=== PATIENT | female | born 1960 | race Caucasian/White ===

== ENCOUNTER 2019-12-14 15:13 | Emergency (ER) | payer MEDICAID, SELFPAY ==
[2019-12-14 15:14] VITALS: BP 145/95; PULSE 84; RESP 16; TEMP 36.7; O2SAT 99; BMI 23.8
--- NOTE | 2019-12-14 15:40 | EKG12_ITS ---
Test Reason : HEART RACING Blood Pressure : / mmHG Vent. Rate : 075 BPM Atrial Rate : 075 BPM P-R Int : 146 ms QRS Dur : 084 ms QT Int : 398 ms P-R-T Axes : 072 086 064 degrees QTc Int : 444 ms Normal sinus rhythm Normal ECG Confirmed by NINI LOPES, AZAEL ([id number]), rewrite editor ADAM OLVERA ([id number]) on 12/17/2019 9:31:33 AM Referred By: KHAN Confirmed By:AZAEL TERRAZAS MD
--- NOTE | 2019-12-14 15:41 | ED.DCSUM_ITS ---
History of Present Illness Chief Complaint: General Illness Informant: Patient Onset: Month(s) Context: Gradual Onset Timing: Intermittent Narrative: Patient presents with multiple complaints. Primary concern in the emergency room is episodes of heart racing and skipping beats along with chest pressure and nausea. She states she has intermittent dizziness and her fingertips will be numb. She states the palpitations will occur multiple times a day and seem to becoming more frequent. The numbness that she notes in her extremities seems to be intermittent and is come on more recently. She does report a history of COPD and states she is supposed to wear oxygen at night. Because she no longer has a PCP her medical supply [employer] has not been able to renew her supplies and she has not been wearing her oxygen for quite some time. - Past Medical History (1) COPD (chronic obstructive pulmonary disease) Status: Chronic (2) Chronic fatigue Status: Chronic (3) Fibromyalgia Status: Chronic (4) Arthritis Status: Chronic Past Medical History - Allergies and Home Meds Allergies/Adverse Reactions: Allergies No Known Allergies Allergy (Verified 12/14/19 15:20) Primary Care Physician: NOT,DEFINED [NON-STAFF] - Prior records reviewed: Yes Lives: Alone Smoking Status: Current every day smoker Review of Systems General: Denies: Chills, Fever Eyes: Denies: Visual changes - bilaterally ENT: Denies: Bilateral ear pain Cardiovascular: Reports: Chest pain - Chest burning, Palpitations, Heart racing Respiratory: Reports: Dyspnea - Intermittent. Denies: Cough Gastrointestinal: Reports: Nausea. Denies: Abdominal pain, Vomiting Genitourinary: Denies: Dysuria Musculoskeletal: Reports: - - Complains of toes turning bright red and purple Skin: Denies: Wounds Neurological: Denies: Headache Hematologic: Denies: Easy bruising, Easy bleeding Allergy: Denies: Uticaria Physical Exam Vital Signs/Narrative: Vital Signs Temp Pulse Resp BP Pulse Ox 12/14/19 15:14 98.1 F 84 16 145/95 H 99 Inital Vital Signs reviewed: Yes General: Well nourished, Well developed Head: Normocephalic ENT: Moist mucous membranes Neck: Supple, Nontender Cardiovascular: Regular rate, Regular rhythm Respiratory: No distress, CTA bilaterally Abdomen: Soft, Nontender, Normal bowel sounds Back: Nontender Extremities: Nontender, - - Normal skin coloration noted to the lower extremities at this time. Strong palpable pulses. Skin: Normal color Neurological: Alert, Oriented x3 Psychological: Normal affect Diagnostic/Tx/Re-eval Impressions Chest X-Ray 12/14/19 15:50 IMPRESSION: Stable hyperaeration. Likely left midlung granuloma. Electronically Signed: Issa Menchaca DO at 16:07 EDT Tel [phone], Service support , 12/14/19 15:50 Chest PA and Lateral [RAD] Stat Laboratory Results 12/14/19 12/14/19 12/14/19 15:45 15:45 15:45 WBC 6.7 RBC 4.52 Hgb 13.9 Hct 41.8 MCV 92.5 MCH 30.8 MCHC 33.3 RDW Std Deviation 43.0 RDW Coeff of Gaudencio 12.7 Plt Count 224 MPV 10.5 Immature Gran % (Auto) 0.300 Neut % (Auto) 77.2 H Lymph % (Auto) 13.1 L [place] % (Auto) 8.5 Eos % (Auto) 0.6 Baso % (Auto) 0.3 Absolute Neuts (auto) 5.2 Absolute Lymphs (auto) 0.88 Nucleated RBC % 0 D-Dimer Quant (PE/DVT) < 0.27 L Sodium 141 Potassium 3.4 L Chloride 107 Carbon Dioxide 30.0 Anion Gap 4 L BUN 19 H Creatinine 0.79 Estim Creat Clear Calc 59.29 Est GFR (MDRD) Af Amer 96 Est GFR (MDRD) Non-Af 80 BUN/Creatinine Ratio 24.0 H Glucose 98 Calcium 9.2 Troponin I < 0.015 TSH 1.19 - EKG Initial EKG Interpretation: Sinus Rhythm - Sinus at 75 with no acute ischemia. - Medical Decision Making Patient was observed on monitoring analyst. No cardiac arrhythmias noted. Potassium is slightly low and will be replaced. Patient is referred to Dr. Martell for close follow-up. s iron worker also talked with the patient. ED Disposition - Plan for ED Patient: Disposition: Home or Assisted Living Diagnosis: Palpitations, Hypokalemia Instructions: ED Palpitations, ED Potassium Deficiency Prescriptions: Potassium Chloride [K-Dur] 20 meq PO BID #6 tab Transmission Status: [facility] to [facility] Referrals: Sherry To MD [STAFF PHYSICIAN] - As soon as possible
--- NOTE | 2019-12-14 15:50 | RAD_ITS ---
STUDY: X-RAY CHEST REASON FOR EXAM: Female, 59 years old. and quot;I HAVE A WHOLE HOST OF SYMPTOMS and quot; -- -- RASH ON EYEBROWS, LUMP ON CHEST, HEART RACING AND POUNDING, DIZZINESS, FINGERTIPS FEEL NUMB, SWELLING IN KNEES, CALVES FEEL TIGHT, BREAKING OUT IN SWEATS. SYMPTOMS HAVE BEEN PRESENT FOR ABOUT 2 MONTHS TECHNIQUE: Frontal and lateral views COMPARISON: 02/11/2010 FINDINGS: The lungs are hyperaerated. Stable left midlung nodule laterally likely a granuloma. Normal size heart. Normal mediastinum and sonny. Normal visualized pulmonary arteries. Normal visualized aortic arch and descending thoracic aorta. Normal visualized thoracic spine. Normal visualized ribs, clavicles, and shoulders. There is no demonstrated abnormality of the visualized soft tissue structures of the upper abdomen. RAD/Chest PA and Lateral IMPRESSION: Stable hyperaeration. Likely left midlung granuloma. Electronically Signed: Issa Menchaca DO at 16:07 EDT Tel [phone], Service support ,
[2019-12-14] MEDS: 0.9% Normal Saline 1,000 ML 150 ML IV (15:54)
[2019-12-14 16:02] LABS: Absolute Lymphocyte Count 0.88 X10^3/uL (0.83-4.51); Absolute Neutrophil Count 5.2 X10^3/uL (2.0-7.7); Basophil# 0.02 X10^3/uL; Basophil% 0.3 % (0-1); Eosinophil# 0.04 X10^3/uL; Eosinophils% 0.6 % (0-5); Hematocrit 41.8 % (37-47); Hemoglobin 13.9 g/dL (12.0-15.0); Lymphocyte # 0.88 X10^3/ul (4.0); Lymphocyte % 13.1 % (19-41); Mean Corp Hgb Conc 33.3 g/dL (32-36); Mean Corpuscular Hgb 30.8 pg (27.0-32.0); Mean Corpuscular Volume 92.5 fL (81-99); Mean Platelet Vol. 10.5 fl (6.2-12.0); Monocyte# 0.57 X10^3/uL; Monocyte% 8.5 % (0-10); NRBC Flagged by Analyzer 0 % (0-5); Neutrophil % 77.2 % (47-70); Platelet Count 224 K/mm3 (150-450); RBC Distribution Width CV 12.7 % (11.6-14.6); Red Blood Count 4.52 M/mm3 (4.2-5.4); White Blood Count 6.7 K/mm3 (4.4-11.0)
[2019-12-14 16:17] LABS: D-Dimer Quantitative (DVT/PE) < 0.27 FEU/ug/m (0.27-0.49)
[2019-12-14 16:28] LABS: Anion Gap 4 (5-15); BUN 19 mg/dL (7-18); Calcium,Total 9.2 mg/dL (8.5-10.1); Chloride 107 mmol/L (98-107); Creatinine, Serum 0.79 mg/dL (0.55-1.02); EST Glomerular Filtration Rate 80 mL/min (>60); Est Glom Filt Rate - Afr Amer 96 mL/min (>60); Estimated Creatinine Clearance 59.29 ml/min; Glucose 98 mg/dL (74-106); Potassium 3.4 mmol/L (3.5-5.1); Sodium Level 141 mmol/L (136-145); Thyroid Stim Hormone (TSH) 1.19 uIU/mL (0.358-3.74)
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
[2019-12-14 17:13] VITALS: BP 147/89; PULSE 78; RESP 14; O2SAT 98
== END 2019-12-14 17:20 | disposition home or self-care (01) ==
PROVIDERS: Emergency Provider Emergency Medicine
DX: R00.2 Palpitations (principal); E87.6 Hypokalemia; F17.200 Nicotine dependence, unspecified, uncomplicated
CPT/HCPCS: 71046; 80048; 84443; 84484; 85025; 85379; 93005; 96360; 99285; J7030; A4216

== ENCOUNTER 2020-08-13 13:22 | Emergency (ER) | payer MEDICAID, SELFPAY ==
[2020-08-13 13:23] VITALS: BP 135/94; PULSE 86; RESP 18; TEMP 35.6; O2SAT 100; BMI 26.2
--- NOTE | 2020-08-13 13:50 | ED.VIS.GEN ---
History of Present Illness Chief Complaint: Headache Informant: Patient Narrative: 59-year-old female presents with intermittent sharp stabbing pains in her bilateral temples. They last seconds and occur on one side or the other. She states they are increasing in frequency. She states that she saw her doctor last week and an MRI of her brain was ordered. She states that it has not received prior authorization so she came here because it was worse over the weekend. She also states she supposed to have a lower extremity ultrasound because of bilateral leg swelling. She is also supposed to have blood work that was ordered in May that she has not yet got done because she is having hair loss source. They apparently wanted a CBC CMP and TSH. Patient denies any visual changes. Past Medical History - Allergies and Home Meds Allergies/Adverse Reactions: Allergies No Known Allergies Allergy (Verified 08/13/20 13:25) Primary Care Physician: Care Physician,No Primary [Primary Care Provider] - Surgical History: noncontributory Smoking Status: Current every day smoker Drugs: None Review of Systems General: Denies: Chills, Fever, Sweats Eyes: Denies: Visual changes - left, Visual changes - right, Visual changes - bilaterally, Diplopia ENT: Denies: Rhinorrhea, Sore throat Cardiovascular: Denies: Chest pain, Palpitations Respiratory: Denies: Dyspnea, Cough, Dyspnea on exertion Gastrointestinal: Denies: Abdominal pain, Nausea, Vomiting, Diarrhea, Melena, Hematochezia Genitourinary: Denies: Dysuria, Hematuria, Frequency Musculoskeletal: Reports: Swelling. Denies: Back pain, Extremity Pain Skin: Denies: Rash, Wounds Neurological: Reports: Headache. Denies: Weakness, Numbness Physical Exam Vital Signs/Narrative: Vital Signs Temp Pulse Resp BP Pulse Ox 08/13/20 13:23 96.1 F L 86 18 135/94 H 100 Inital Vital Signs reviewed: Yes General: Well nourished, Well developed, No Acute Distress Head: Normocephalic, Atraumatic Eyes: Perrl, EOMI ENT: Moist mucous membranes, No rhinorrhea Neck: Supple, Nontender Cardiovascular: Regular rate, Regular rhythm, No murmurs Respiratory: No distress, CTA bilaterally, Chest nontender Abdomen: Soft, Nontender, Nondistended, Normal bowel sounds Back: Nontender, Normal Inspection Extremities: Nontender, Edema - 1+ lower extremity pitting edema Skin: Normal color, No rash Neurological: Alert, Oriented x3, Cranial nerves II-XII grossly intact, Normal Strength, Normal Sensation Psychological: Normal affect, Normal Mood Diagnostic/Tx/Re-eval Laboratory Last Values WBC 6.6 K/mm3 (4.4-11.0) 08/13/20 13:50 RBC 4.46 M/mm3 (4.2-5.4) 08/13/20 13:50 Hgb 13.7 g/dL (12.0-15.0) 08/13/20 13:50 Hct 41.4 % (37-47) 08/13/20 13:50 MCV 92.8 fL (81-99) 08/13/20 13:50 MCH 30.7 pg (27.0-32.0) 08/13/20 13:50 MCHC 33.1 g/dL (32-36) 08/13/20 13:50 RDW Std Deviation 43.7 fl (35.1-43.9) 08/13/20 13:50 RDW Coeff of Gaudencio 12.7 % (11.6-14.6) 08/13/20 13:50 Plt Count 211 K/mm3 (150-450) 08/13/20 13:50 MPV 10.6 fl (6.2-12.0) 08/13/20 13:50 Immature Gran % (Auto) 0.200 % (0.0-0.9) 08/13/20 13:50 Neut % (Auto) 80.1 % (47-70) H 08/13/20 13:50 Lymph % (Auto) 11.4 % (19-41) L 08/13/20 13:50 [place] % (Auto) 7.2 % (0-10) 08/13/20 13:50 Eos % (Auto) 0.6 % (0-5) 08/13/20 13:50 Baso % (Auto) 0.5 % (0-1) 08/13/20 13:50 Absolute Neuts (auto) 5.3 X10^3/uL (2.0-7.7) 08/13/20 13:50 Absolute Lymphs (auto) 0.75 X10^3/uL (0.83-4.51) L 08/13/20 13:50 Nucleated RBC % 0 % (0-5) 08/13/20 13:50 Sodium 141 mmol/L (136-145) 08/13/20 13:50 Potassium 3.4 mmol/L (3.5-5.1) L 08/13/20 13:50 Chloride 105 mmol/L (98-107) 08/13/20 13:50 Carbon Dioxide 32.0 mmol/L (21.0-32.0) 08/13/20 13:50 Anion Gap 4 (5-15) L 08/13/20 13:50 BUN 16 mg/dL (7-18) 08/13/20 13:50 Creatinine 0.72 mg/dL (0.55-1.02) 08/13/20 13:50 Estim Creat Clear Calc 68.18 ml/min 08/13/20 13:50 Est GFR (MDRD) Af Amer 107 mL/min (>60) 08/13/20 13:50 Est GFR (MDRD) Non-Af 88 mL/min (>60) 08/13/20 13:50 BUN/Creatinine Ratio 22.2 RATIO (10-20) H 08/13/20 13:50 Glucose 107 mg/dL (74-106) H 08/13/20 13:50 Calcium 9.2 mg/dL (8.5-10.1) 08/13/20 13:50 Total Bilirubin 0.40 mg/dL (0.20-1.00) 08/13/20 13:50 AST 17 U/L (15-37) 08/13/20 13:50 ALT 25 U/L (13-56) 08/13/20 13:50 Alkaline Phosphatase 100 U/L (45-117) 08/13/20 13:50 Total Protein 7.3 g/dL (6.4-8.2) 08/13/20 13:50 Albumin 3.7 g/dL (3.2-5.0) 08/13/20 13:50 Globulin 3.6 g/dL (2.2-4.2) 08/13/20 13:50 Albumin/Globulin Ratio 1.0 RATIO (0.9-2.4) 08/13/20 13:50 TSH 0.79 uIU/mL (0.358-3.74) 08/13/20 13:50 - Medical Decision Making Basic blood work obtained and negative. I will write for the patient to have Lasix. She is to follow-up with her doctor. I would not recommend elevating the legs and perhaps needing compression stockings in the future. By for her intermittent sharp headaches in the temporal areas I cannot get that for her today but her doctor is will be arranging that. I do not think she needs an emergent CT scan symptoms been present for months. ED Disposition - Plan for ED Patient: Disposition: Home or Assisted Living Diagnosis: Cephalgia, Lymphedema Instructions: ED Lymphedema Prescriptions: Furosemide [Lasix] 40 mg PO DAILY #7 tablet Transmission Status: [facility] Additional Instructions: Please follow-up with your primary care physician. I would recommend you calling care source and seeing if you can be assigned a new provider here in [place] if you wish to change as sometimes it is very difficult to navigate which providers take care source.
[2020-08-13 13:59] LABS: Absolute Lymphocyte Count 0.75 X10^3/uL (0.83-4.51); Absolute Neutrophil Count 5.3 X10^3/uL (2.0-7.7); Basophil# 0.03 X10^3/uL; Basophil% 0.5 % (0-1); Eosinophil# 0.04 X10^3/uL; Eosinophils% 0.6 % (0-5); Hematocrit 41.4 % (37-47); Hemoglobin 13.7 g/dL (12.0-15.0); Lymphocyte # 0.75 X10^3/ul (0.83-4.51); Lymphocyte % 11.4 % (19-41); Mean Corp Hgb Conc 33.1 g/dL (32-36); Mean Corpuscular Hgb 30.7 pg (27.0-32.0); Mean Corpuscular Volume 92.8 fL (81-99); Mean Platelet Vol. 10.6 fl (6.2-12.0); Monocyte# 0.47 X10^3/uL; Monocyte% 7.2 % (0-10); NRBC Flagged by Analyzer 0 % (0-5); Neutrophil # 5.26 X10^3/uL (2.7-7.7); Neutrophil % 80.1 % (47-70); Platelet Count 211 K/mm3 (150-450); RBC Distribution Width CV 12.7 % (11.6-14.6); RBC Distribution Width SD 43.7 fl (35.1-43.9); Red Blood Count 4.46 M/mm3 (4.2-5.4); White Blood Count 6.6 K/mm3 (4.4-11.0)
[2020-08-13 14:22] LABS: AST(SGOT) 17 U/L (15-37); Alanine Aminotransfer ALT/SGPT 25 U/L (13-56); Albumin, Serum 3.7 g/dL (3.2-5.0); Alkaline Phosphatase 100 U/L (45-117); Anion Gap 4 (5-15); BUN 16 mg/dL (7-18); BUN/Creat Ratio 22.2 RATIO (10-20); Calcium,Total 9.2 mg/dL (8.5-10.1); Chloride 105 mmol/L (98-107); Creatinine, Serum 0.72 mg/dL (0.55-1.02); EST Glomerular Filtration Rate 88 mL/min (>60); Est Glom Filt Rate - Afr Amer 107 mL/min (>60); Estimated Creatinine Clearance 68.18 ml/min; Globulin 3.6 g/dL (2.2-4.2); Glucose 107 mg/dL (74-106); Potassium 3.4 mmol/L (3.5-5.1); Protein, Total 7.3 g/dL (6.4-8.2); Sodium Level 141 mmol/L (136-145); Thyroid Stim Hormone (TSH) 0.79 uIU/mL (0.358-3.74)
== END 2020-08-13 14:35 | disposition home or self-care (01) ==
PROVIDERS: Emergency Provider Emergency Medicine
DX: R51.9 Headache, unspecified (principal); I89.0 Lymphedema, not elsewhere classified; F17.200 Nicotine dependence, unspecified, uncomplicated
CPT/HCPCS: 80053; 84443; 85025; 99283; A4216

== ENCOUNTER → 2020-08-31 12:20 | Outpatient (CLI) | payer MEDICAID, SELFPAY ==
[2020-08-13 13:23] VITALS: BMI 26.2
--- NOTE | 2020-08-31 12:30 | MRI_ITS ---
STUDY: MRI BRAIN WITH AND WITHOUT CONTRAST REASON FOR EXAM: Female, 59 years old. MORFIN,VISUAL HALLUCINATIONS TECHNIQUE: Standardized multiplanar fat and water weighted pulse sequences were obtained. IV 12ml Dotarem was administered for the contrast portion of the examination. COMPARISON: None. FINDINGS: Normal size of the ventricles and extra-axial spaces for the patient''s age. Normal white matter tracts of the supratentorial brain. There is no evidence for recent intracranial ischemia or other cause of cytotoxic edema on diffusion weighted imaging (DWI). Normal T2* images of the brain without demonstrated susceptibility artifact. There is no demonstrated hemosiderin stain. Normal bilateral basal ganglia. Normal thalami. There is no extra-axial fluid accumulation. Normal flow voids within the major intracranial circulation suggesting patency by spin echo criteria. Normal venous enhancement. There is no enhancing intra-axial or extra-axial abnormality. Normal sella turcica, pituitary gland, infundibular stalk, optic chiasm and hypothalamus. Normal tectal plate and pineal gland. Normal midbrain, padma and medulla. Normal cerebellum. Normal basal cisterns. Normal bilateral temporal bones. Normal bilateral internal auditory canals. No demonstrated orbital abnormality, within the constraints of a routine brain study. Mucosal thickening and mucous retention cyst in left maxillary sinus consistent with chronic sinusitis. Normal calvarium and skull base. Normal visualized soft tissue structures. Normal visualized upper cervical spine. MRI/Brain W/WO Contrast IMPRESSION: Normal unenhanced and enhanced MRI of the brain. Electronically Signed: Fer Johnson MD at 14:10 EDT Tel , Service support ,
--- NOTE | 2020-08-31 13:35 | VDLE_ITS ---
Reason For Study: Edema RIGHT LEFT GSV is normal. GSV is normal. CFV is compressible, spontaneous, phasic, CFV is compressible, spontaneous, phasic, competent and demonstrates normal competent, and demonstrates normal augmentation. augmentation. FV is compressible, spontaneous, phasic, FV is compressible, spontaneous, phasic, competent and demonstrates normal competent and demonstrates normal augmentation. augmentation. POP V is compressible, spontaneous, phasic, POP V is compressible, spontaneous, phasic, competent and demonstrates normal competent and demonstrates normal augmentation. augmentation. T/P Trunk is compressible. T/P Trunk is compressible. PTV is compressible. PTV is compressible. RT PerV is compressible. LT PerV is compressible. Procedure This is a venous duplex using B-mode, color flow and spectral Doppler. Exam performed in department. A preliminary report was called and/or faxed to Sia Su CNP. VL/Venous Duplex US - Saroj Extrem Interpretation Summary Deep veins of the lower extremities are bilaterally patent and compressible seg mentally. There is no evidence of deep vein thrombosis on either side. Valvular competence appears in tact within the proximal deep venous systems bilaterally. The great saphenous veins appear bila terally patent and compressible segmentally. Ordering Physician: SIA SU Referring Physician: SIA SU Performed By: Maddy Whalen, BRANDICS, RVT
== END ==
DX: R44.1 Visual hallucinations (principal); R51.9 Headache, unspecified
CPT/HCPCS: 70553; 93970; A9575

== ENCOUNTER 2021-01-05 16:50 | Emergency (ER) | payer MEDICAID, SELFPAY ==
[2021-01-05] VITALS (7 sets, daily range): BP systolic 135–147; BP diastolic 74–108; PULSE 65–104; RESP 15–18; TEMP 36.4; O2SAT 96–99; BMI 26.0
--- NOTE | 2021-01-05 17:58 | EX.ED.VIS.UR ---
HPI HPI - URI History of Present Illness Chief Complaint: Cough Detail of Chief Complaint: Cough and cold symptoms for over a week Informant: patient Narrative Narrative: Patient presents to the emergency department complaint of cold symptoms that started about a week ago. Patient describes cough and sneezing. Patient states initially she felt like it started in her chest and thought it was related to maybe some bronchitis that she gets when the weather changes. Patient does have history of COPD. She complained of some mild dyspnea with activity and exertion. Patient states she has been in bed a lot. Patient is concerned about Covid because her daughter tested positive for Covid recently. Patient is not immunized against Covid. Patient denies fevers. She does have body aches and intermittent headaches. Patient also describes frequent diarrhea. Prior similar symptoms: No ROS ROS ED Constitutional Constitutional ED: Reports systems reviewed and no addt'l complaints, except as documented; Denies body ache(s), change in weight or chills Eyes Eyes: Denies acute decrease in peripheral vision, change in vision, double vision or loss of vision ENT ENT ED: Reports none; Denies ear pain, lip swelling, loss taste/smell, neck pain, otalgia or sore throat Cardiovascular Cardiovascular: Reports none; Denies abdominal pain, chest pain with activity, leg edema, lightheadedness, palpitations, rapid heart rate or syncope Respiratory/Chest Respiratory/Chest: Reports none, cough and dyspnea; Denies change in mental status, dry cough, hemoptysis, shortness of breath at rest or shortness of breath with exertion Gastrointestinal Gastrointestinal: Reports none and diarrhea; Denies abdominal pain, change in stool character, hematemesis, hematochezia, melena, rectal bleeding or vomiting Genitourinary Genitourinary ED: Reports none; Denies abdominal discomfort, anuria, dysuria, genital pain or polyuria Musculoskeletal Musculoskeletal: Reports none and myalgias; Denies arthralgias, back pain, difficulty walking, extremity pain or muscle weakness Integumentary Reports none; Denies abscess or rash Neurologic Neurologic: Reports none and headache(s); Denies abnormal gait, confusion, focal weakness, frequent falls, loss of vision, numbness, paresthesias, radicular pain, vertigo or weakness Psychiatric Psychiatric: Reports systems reviewed and no addt'l complaints, except as documented and none; Denies behavioral changes, confusion, difficulty concentrating, hallucinations, suicidal ideation, tactile hallucinations or visual hallucinations Endocrine Endocrinology: Denies none, cold intolerance, excessive sweating, fatigue or heat intolerance Hematologic/Lymphatic Hematologic/Lymphatic: Reports none; Denies anemia, easy bleeding or easy bruising Allergic/Immunologic Allergic/Immunologic ED: Denies as per HPI, none, lip swelling, mouth swelling, throat swelling, tongue swelling or hives PFSH PFSH Home Medications cholecalciferol (vitamin D3) 1,000 unit PO DAILY 12/14/19 [History Last Taken Unknown] dextroamphetamine-amphetamine 20 mg PO BID 12/14/19 [History Last Taken Unknown] fluoxetine 20 mg PO DAILY 12/14/19 [History Last Taken Unknown] potassium chloride 20 meq PO BID #6 tab 12/14/19 [Rx Last Taken Unknown] furosemide 40 mg PO DAILY #7 tablet 08/13/20 [Rx Last Taken Unknown] Allergy/AdvReac Type Severity Reaction Status Date / Time No Known Allergies Allergy Verified 08/13/20 13:25 Social History Smoking Status: Current every day smoker tobacco type: cigarettes EXAM Physical Exam Const Vital Signs: 01/05/21 16:51 01/05/21 18:05 01/05/21 18:38 Temperature 97.6 F L 97.6 F L Temperature Source Temporal Temporal Pulse Rate 104 H 104 H Respiratory Rate 18 18 Respiratory Effort Normal Non-Labored Respiratory Depth Normal Respiratory Pattern Normal Blood Pressure 147/108 H 147/108 H Blood Pressure Mean 121 121 Pulse Ox 96 96 Oxygen Delivery Method Room Air Room Air Room Air 01/05/21 19:08 01/05/21 19:46 01/05/21 22:00 Temperature 97.5 F L Temperature Source Oral Pulse Rate 89 65 Respiratory Rate 16 17 17 Respiratory Effort Respiratory Depth Respiratory Pattern Blood Pressure 139/82 H 146/97 H Blood Pressure Mean 101 113 Pulse Ox 97 98 Oxygen Delivery Method Room Air Room Air Room Air Positive well nourished and well developed General Appearance ED: well developed and NAD HEENT Reports TM's clear and moist mucous membranes normocephalic and atraumatic; Negative for trauma or tenderness Tympanic Membrane ED: Yes TM's clear Eyes PERRL and EOMs intact bilaterally General Eye ED: Negative for pale conjunctiva or scleral icterus Neck no lymphadenopathy, supple and no JVD General: Negative for tenderness Chest Wall inspection of chest normal and palpation of chest normal Chest: Negative for tenderness Resp normal respiratory effort and clear to auscultation bilaterally Effort and Inspection: Negative for respiratory distress or pain with movement Auscultation: Negative for rhonchi, wheezes or diminished lung sounds Cardio regular rate, regular rhythm, S1 normal heart sound, S2 normal heart sound and no murmurs Peripheral Pulses: pulses 2+ throughout GI normal to inspection, nondistended, normoactive bowel sounds, soft to palpation, non-tender, non-distended and no masses Back/Spine no CVA tenderness and no thoracic nor lumbar tenderness Extremity normal to inspection General Extremety ED: Negative for edema General Extremity: Negative for edema Neuro oriented x3, CN's II-XII intact bilaterally, no sensory deficits noted and gait normal Sensorium / Orientation: awake, alert, oriented to person, oriented to place and oriented to time Motor Exam: strength 5/5 throughout and strength abnormal Psych mental status grossly normal Skin no rashes or lesions noted and no wounds MDM MDM MDM Narrative Medical decision making narrative: IV line established on arrival. Work-up in ED was essentially unremarkable. I did do a PCR Covid test given that she has had symptoms for more than a week and this was negative for Covid. Chest x-ray was unremarkable. Lab work unremarkable. At this point I do not see any indication for antibiotics. Patient will be discharged home with instructions to follow-up with primary care physician in 3 to 5 days. She is advised to return if increasing shortness of breath or condition worsen anyway. Lab Data Attestation: I reviewed the patient's lab results. Labs: Laboratory Results - last 24 hr 01/05/21 01/05/21 01/05/21 18:11 18:16 18:16 WBC 5.8 RBC 4.72 Hgb 14.8 Hct 44.1 MCV 93.4 MCH 31.4 MCHC 33.6 RDW Std Deviation 42.6 RDW Coeff of Gaudencio 12.3 Plt Count 202 MPV 10.9 Immature Gran % (Auto) 0.200 Neut % (Auto) 72.0 H Lymph % (Auto) 16.0 L Winston % (Auto) 10.6 H Eos % (Auto) 0.9 Baso % (Auto) 0.3 Absolute Neuts (auto) 4.2 Absolute Lymphs (auto) 0.92 Nucleated RBC % 0 D-Dimer Quant (PE/DVT) 0.28 Sodium Potassium Chloride Carbon Dioxide Anion Gap BUN Creatinine Estim Creat Clear Calc Est GFR (MDRD) Af Amer Est GFR (MDRD) Non-Af BUN/Creatinine Ratio Glucose Calcium COVID-19 ([facility]) Not Detected 01/05/21 18:16 WBC RBC Hgb Hct MCV MCH MCHC RDW Std Deviation RDW Coeff of Gaudencio Plt Count MPV Immature Gran % (Auto) Neut % (Auto) Lymph % (Auto) Winston % (Auto) Eos % (Auto) Baso % (Auto) Absolute Neuts (auto) Absolute Lymphs (auto) Nucleated RBC % D-Dimer Quant (PE/DVT) Sodium 142 Potassium 3.7 Chloride 109 H Carbon Dioxide 28.0 Anion Gap 5 BUN 16 Creatinine 0.71 Estim Creat Clear Calc 65.17 Est GFR (MDRD) Af Amer 109 Est GFR (MDRD) Non-Af 90 BUN/Creatinine Ratio 22.5 H Glucose 96 Calcium 9.7 COVID-19 ([facility]) Radiography Diagnostic Testing: Radiology Impression Chest X-Ray 01/05/21 18:12 IMPRESSION: No radiographic evidence of acute cardiopulmonary disease. at 1840 Reported and signed by: Frankie Love MD Electronically Signed: Frankie Love MD at 18:39 EDT Tel , Service support , Discharge Plan Triage Chief Complaint: Cough ED Provider: Nancy Gay Dx/Rx/DC Orders Clinical Impression: Viral URI Instructions: ED URI, Viral, No Abx (Adult) Prescriptions: No Action dextroamphetamine-amphetamine 20 MG tablet 20 mg PO BID RF: 0 fluoxetine 20 MG capsule 20 mg PO DAILY RF: 0 cholecalciferol (vitamin D3) 1,000 UNIT tablet 1,000 unit PO DAILY RF: 0 potassium chloride 20 MEQ tablet 20 meq PO BID Qty: 6 RF: 0 furosemide 40 MG tablet 40 mg PO DAILY Qty: 7 RF: 0 Primary Care Provider: Care Physician,No Primary Referrals: Care Physician,No Primary [Primary Care Provider] - Activity Restrictions/Additional Instructions: See your family doctor in 3 to 5 days. Disposition Disposition: Home, Self Care
--- NOTE | 2021-01-05 18:12 | RAD_ITS ---
HISTORY: dyspnea EXAMINATION/TECHNIQUE: XR Chest 1 View: Portable upright AP chest x-ray COMPARISON: 12/14/19 FINDINGS: LINES/DEVICES: None. LUNGS: No consolidation, edema or effusion. No pneumothorax. MEDIASTINUM AND CARDIOVASCULAR STRUCTURES: Cardiac silhouette not enlarged. Central airways and mediastinal contour are unremarkable. BONES AND SOFT TISSUES: No acute bony abnormalities. RAD/Chest 1 View (Portable) IMPRESSION: No radiographic evidence of acute cardiopulmonary disease. at 1840 Reported and signed by: Frankie Love MD Electronically Signed: Frankie Love MD at 18:39 EDT Tel , Service support ,
[2021-01-05 18:29] LABS: Absolute Lymphocyte Count 0.92 X10^3/uL (0.83-4.51); Absolute Neutrophil Count 4.2 X10^3/uL (2.0-7.7); Basophil# 0.02 X10^3/uL; Basophil% 0.3 % (0-1); Eosinophil# 0.05 X10^3/uL; Eosinophils% 0.9 % (0-5); Hematocrit 44.1 % (37-47); Hemoglobin 14.8 g/dL (12.0-15.0); Lymphocyte # 0.92 X10^3/ul (0.83-4.51); Mean Corp Hgb Conc 33.6 g/dL (32-36); Mean Corpuscular Hgb 31.4 pg (27.0-32.0); Mean Corpuscular Volume 93.4 fL (81-99); Mean Platelet Vol. 10.9 fl (6.2-12.0); Monocyte# 0.61 X10^3/uL; Monocyte% 10.6 % (0-10); NRBC Flagged by Analyzer 0 % (0-5); Neutrophil # 4.15 X10^3/uL (2.7-7.7); Platelet Count 202 K/mm3 (150-450); RBC Distribution Width CV 12.3 % (11.6-14.6); RBC Distribution Width SD 42.6 fl (35.1-43.9); Red Blood Count 4.72 M/mm3 (4.2-5.4); White Blood Count 5.8 K/mm3 (4.4-11.0)
[2021-01-05 18:38] LABS: D-Dimer Quantitative (DVT/PE) 0.28 FEU/ug/m (0.27-0.49)
[2021-01-05 18:40] LABS: Anion Gap 5 (5-15); BUN 16 mg/dL (7-18); BUN/Creat Ratio 22.5 RATIO (10-20); Calcium,Total 9.7 mg/dL (8.5-10.1); Chloride 109 mmol/L (98-107); Creatinine, Serum 0.71 mg/dL (0.55-1.02); EST Glomerular Filtration Rate 90 mL/min (>60); Est Glom Filt Rate - Afr Amer 109 mL/min (>60); Estimated Creatinine Clearance 65.17 ml/min; Glucose 96 mg/dL (74-106); Potassium 3.7 mmol/L (3.5-5.1); Sodium Level 142 mmol/L (136-145)
[2021-01-05] MEDS: 0.9% Normal Saline 1,000 ML 150 ML IV (18:47)
== END 2021-01-05 23:16 | disposition home or self-care (01) ==
PROVIDERS: Emergency Provider Emergency Medicine
DX: J06.9 Acute upper respiratory infection, unspecified (principal); F17.210 Nicotine dependence, cigarettes, uncomplicated; Z79.899 Other long term (current) drug therapy
CPT/HCPCS: 71045; 80048; 85025; 85379; 87040; 87635; 99283; J7030; U0005; A4216; U0003

== ENCOUNTER 2021-05-12 15:37 | Emergency (ER) | payer MEDICAID, SELFPAY ==
[2021-05-12 15:38] VITALS: BP 123/101; PULSE 107; RESP 16; TEMP 35.7; O2SAT 100; BMI 25.5
--- NOTE | 2021-05-12 15:41 | EKG12_ITS ---
Test Reason : CP/SOB Blood Pressure : / mmHG Vent. Rate : 101 BPM Atrial Rate : 101 BPM P-R Int : 142 ms QRS Dur : 082 ms QT Int : 350 ms P-R-T Axes : 081 085 040 degrees QTc Int : 453 ms Sinus tachycardia Biatrial enlargement Abnormal ECG Confirmed by MAIN LOPES, JC ([id number]), legal editor ADAM OLVERA ([id number]) on 05/14/2021 8:57:40 AM Referred By: THAO/NORA Confirmed By:JC QUACH MD
[2021-05-12 16:22] VITALS: O2SAT 100
[2021-05-12 16:23] VITALS: O2SAT 99
[2021-05-12 16:27] LABS: Absolute Lymphocyte Count 0.87 X10^3/uL (0.83-4.51); Absolute Neutrophil Count 4.5 X10^3/uL (2.0-7.7); Basophil# 0.02 X10^3/uL; Basophil% 0.3 % (0-1); Eosinophil# 0.04 X10^3/uL; Eosinophils% 0.7 % (0-5); Hematocrit 47.4 % (37-47); Lymphocyte # 0.87 X10^3/ul (0.83-4.51); Lymphocyte % 14.4 % (19-41); Mean Corp Hgb Conc 33.8 g/dL (32-36); Mean Corpuscular Volume 91.9 fL (81-99); Mean Platelet Vol. 10.7 fl (6.2-12.0); Monocyte# 0.62 X10^3/uL; Monocyte% 10.2 % (0-10); NRBC Flagged by Analyzer 0 % (0-5); Neutrophil # 4.49 X10^3/uL (2.7-7.7); Neutrophil % 74.2 % (47-70); Platelet Count 231 K/mm3 (150-450); RBC Distribution Width CV 12.2 % (11.6-14.6); RBC Distribution Width SD 41.3 fl (35.1-43.9); Red Blood Count 5.16 M/mm3 (4.2-5.4); White Blood Count 6.1 K/mm3 (4.4-11.0)
--- NOTE | 2021-05-12 16:30 | RAD_ITS ---
History: chest pain EXAMINATION/TECHNIQUE: XR Chest 1 View: Portable COMPARISON: January 05, 2021 FINDINGS: LINES/DEVICES: None. LUNGS: No consolidation, edema or effusion. No pneumothorax. MEDIASTINUM AND CARDIOVASCULAR STRUCTURES: Cardiac silhouette not enlarged. Central airways and mediastinal contour are unremarkable. BONES AND SOFT TISSUES: Unremarkable. RAD/Chest 1 View (Portable) IMPRESSION: No radiographic evidence of acute cardiopulmonary disease. at 1649 Reported and signed by: Adam Hilton MD Electronically Signed: Adam iHlton MD at 16:48 EST Tel , Service support ,
[2021-05-12 16:37] VITALS: BP 118/80; PULSE 80; RESP 15; O2SAT 96
[2021-05-12 16:45] LABS: Anion Gap 5 (5-15); BUN 14 mg/dL (7-18); BUN/Creat Ratio 16.1 RATIO (10-20); Calcium,Total 9.4 mg/dL (8.5-10.1); Chloride 106 mmol/L (98-107); Creatinine, Serum 0.87 mg/dL (0.55-1.02); EST Glomerular Filtration Rate 71 mL/min (>60); Est Glom Filt Rate - Afr Amer 86 mL/min (>60); Estimated Creatinine Clearance 53.19 ml/min; Glucose 87 mg/dL (74-106); Potassium 3.5 mmol/L (3.5-5.1); Sodium Level 141 mmol/L (136-145); Troponin-I HS 8 pg/mL (3.0-54.0)
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
[2021-05-12 17:00] VITALS: BP 122/79; PULSE 79; RESP 19; O2SAT 97
[2021-05-12 18:00] VITALS: PULSE 80; RESP 17; O2SAT 97
== END 2021-05-12 19:19 | disposition home or self-care (01) ==
PROVIDERS: Emergency Provider Emergency Medicine; Visit Provider Emergency Medicine
DX: T59.7X1A Toxic effect of carbon dioxide, accidental (unintentional), initial encounter (principal); J44.9 Chronic obstructive pulmonary disease, unspecified; R53.1 Weakness; Y92.018 Other place in single-family (private) house as the place of occurrence of the external cause; F17.210 Nicotine dependence, cigarettes, uncomplicated; Z20.822 Contact with and (suspected) exposure to COVID-19
CPT/HCPCS: 71045; 80048; 84484; 85025; 87426; 93005; 99284; A4216

== ENCOUNTER 2021-08-12 15:33 | Emergency (ER) | payer MEDICAID, SELFPAY ==
[2021-08-12 15:34] VITALS: BP 116/82; PULSE 99; RESP 18; TEMP 36.2; O2SAT 100; BMI 27.4
--- NOTE | 2021-08-12 15:55 | CT_ITS ---
STUDY: CT BRAIN WITHOUT CONTRAST REASON FOR EXAM: Female, 60 years old. head injury RADIATION DOSAGE (If Supplied By Facility): CTDIvol = ( 44.99 ) mGy, DLP = ( 745.49 ) mGycm TECHNIQUE: Transaxial CT imaging of the brain was performed without administration of intravenous contrast material. Individualized dose optimization techniques were used for this CT. COMPARISON: No relevant priors. FINDINGS: Normal soft tissue structures. Normal calvarium. Normal size ventricles and extra-axial spaces for the patient''s age. Normal white matter tracts of the cerebral hemispheres. Normal basal ganglia and thalami. Normal brainstem. Normal cerebellum. There is no intracranial hemorrhage. There are no findings of an acute ischemic infarction. Mucosal thickening of the castro of the left maxillary sinus consistent with chronic sinusitis. CT/Brain/Head without Contrast IMPRESSION: Normal unenhanced CT scan of the brain. Electronically Signed: Fer Johnson MD at 17:41 EDT ,
--- NOTE | 2021-08-12 15:55 | CT_ITS ---
STUDY: CT CERVICAL SPINE WITHOUT CONTRAST REASON FOR EXAM: Female, 60 years old. head injury RADIATION DOSAGE (If Supplied By Facility): CTDIvol = ( 15.00 ) mGy, DLP = ( 306.22 ) mGycm TECHNIQUE: High resolution transaxial imaging was performed without contrast material. Sagittal and coronal images were reconstructed. Individualized dose optimization techniques were used for this CT. COMPARISON: None FINDINGS: Normal craniovertebral junction. Normal anterior atlantoaxial articulation. Normal odontoid process. Normal cervical lordosis. Normal vertebral bodies and posterior osseous elements. C2-3: Normal endplates. Normal disc height and morphology. Normal central canal and intervertebral neuroforamina. C3-4: Normal endplates. Normal disc height and morphology. Normal central canal and intervertebral neuroforamina. C4-5: Mild broad disc osteophyte complex and bilateral uncovertebral joint hypertrophy produces mild spinal stenosis and mild bilateral neural foraminal stenosis. C5-6: Mild broad disc osteophyte complex and bilateral uncovertebral joint hypertrophy produces mild spinal stenosis and mild bilateral neural foraminal stenosis. C6-7: Mild broad disc osteophyte complex and bilateral degenerative hypertrophy produces mild spinal stenosis and mild bilateral neural foraminal stenosis. C7-T1: Normal endplates. Normal disc height and morphology. Normal central canal and intervertebral neuroforamina. Normal visualized soft tissue structures. CT/Spine Cervical without Contras IMPRESSION: No acute fracture or subluxation. Electronically Signed: Fer Johnson MD at 17:46 EDT ,
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
[2021-08-12 16:21] LABS: Absolute Lymphocyte Count 0.79 X10^3/uL (0.83-4.51); Absolute Neutrophil Count 8.7 X10^3/uL (2.0-7.7); Basophil# 0.03 X10^3/uL; Basophil% 0.3 % (0-1); Eosinophil# 0.04 X10^3/uL; Eosinophils% 0.4 % (0-5); Hematocrit 46.1 % (37-47); Hemoglobin 15.8 g/dL (12.0-15.0); Lymphocyte # 0.79 X10^3/ul (0.83-4.51); Lymphocyte % 7.6 % (19-41); Mean Corp Hgb Conc 34.3 g/dL (32-36); Mean Corpuscular Hgb 31.6 pg (27.0-32.0); Mean Corpuscular Volume 92.2 fL (81-99); Mean Platelet Vol. 10.6 fl (6.2-12.0); Monocyte# 0.81 X10^3/uL; Monocyte% 7.8 % (0-10); NRBC Flagged by Analyzer 0 % (0-5); Neutrophil # 8.74 X10^3/uL (2.7-7.7); Neutrophil % 83.7 % (47-70); Platelet Count 220 K/mm3 (150-450); RBC Distribution Width CV 12.2 % (11.6-14.6); RBC Distribution Width SD 41.3 fl (35.1-43.9); White Blood Count 10.4 K/mm3 (4.4-11.0)
[2021-08-12 16:49] LABS: ALB/GLOB Ratio 1.1 RATIO (0.9-2.4); AST(SGOT) 19 U/L (15-37); Alanine Aminotransfer ALT/SGPT 26 U/L (13-56); Albumin, Serum 4.2 g/dL (3.2-5.0); Alkaline Phosphatase 93 U/L (45-117); Anion Gap 7 (5-15); BUN 16 mg/dL (7-18); BUN/Creat Ratio 19.3 RATIO (10-20); Calcium,Total 9.2 mg/dL (8.5-10.1); Chloride 107 mmol/L (98-107); Creatinine, Serum 0.83 mg/dL (0.55-1.02); EST Glomerular Filtration Rate 75 mL/min (>60); Est Glom Filt Rate - Afr Amer 91 mL/min (>60); Estimated Creatinine Clearance 58.43 ml/min; Globulin 3.8 g/dL (2.2-4.2); Glucose 94 mg/dL (74-106); Magnesium 2.2 mg/dL (1.6-2.6); Potassium 3.5 mmol/L (3.5-5.1); Sodium Level 141 mmol/L (136-145); Thyroid Stim Hormone (TSH) 0.67 uIU/mL (0.358-3.74)
[2021-08-12 19:03] VITALS: RESP 18
== END 2021-08-12 19:35 | disposition home or self-care (01) ==
PROVIDERS: Emergency Provider Emergency Medicine; Visit Provider Emergency Medicine
DX: S06.0X0A Concussion without loss of consciousness, initial encounter (principal); S00.93XA Contusion of unspecified part of head, initial encounter; R10.9 Unspecified abdominal pain; F17.210 Nicotine dependence, cigarettes, uncomplicated; W19.XXXA Unspecified fall, initial encounter
CPT/HCPCS: 70450; 72125; 80053; 83735; 84443; 85025; 99282

== ENCOUNTER 2021-12-02 15:37 | Emergency (ER) | payer MEDICAID, SELFPAY ==
[2021-12-02 15:40] VITALS: BP 137/86; PULSE 101; RESP 16; TEMP 36.8; O2SAT 98; BMI 25.7
--- NOTE | 2021-12-02 15:59 | CT_ITS ---
STUDY: CT ABDOMEN AND PELVIS WITH CONTRAST ENHANCEMENT OF 1742 HOURS ON 12/02/2021 REASON FOR EXAM: 61-year-old female with abdominal pain. RADIATION DOSAGE (If Supplied By Facility): CTDIvol = ( 12.79 ) mGy, DLP = ( 562.37 ) mGycm. TECHNIQUE: Transaxial images were obtained from the dome of the diaphragm to the symphysis pubis without oral contrast. Oral and amp; IV Gastrografin and amp; 100mL Isovue-300 was administered. Sagittal and coronal images were reconstructed. Individualized dose optimization techniques were used for this CT. COMPARISON: None. FINDINGS: The visualized lung bases are unremarkable. The visualized portions of the heart are within normal limits. Normal liver. Normal gallbladder and extrahepatic biliary system; no cholelithiasis or cholecystitis.. Normal spleen. Normal pancreas; no pancreatitis or pancreatic mass lesions.. Normal bilateral adrenal glands. 9 mm simple cyst superior pole right kidney. No other renal cysts or solid mass lesions. No obstructive uropathy or pyelonephritis. Normal visualized stomach. Normal small intestine. Mild constipation. No diverticulitis, colitis, or intestinal obstruction. The appendix is visualized and appears normal; no appendicitis.. Normal abdominal aorta. Normal inferior vena cava. Normal retroperitoneum. There is moderate bladder wall thickening that may represent a cystitis or the residue of a cystitis. Normal anteverted uterus. No ovarian cystic or solid mass lesions. Normal abdominal wall. Mild lumbar lordosis. Otherwise, normal osseous structures. CT/Abdomen/Pelvis WITH Contrast IMPRESSION: 1. Mild constipation. 2. No appendicitis, diverticulitis, colitis, or intestinal obstruction. 3. No cholelithiasis, cholecystitis, pancreatitis. No pancreatic mass lesions. 4. No pyelonephritis or obstructive uropathy. No renal cystic or solid mass lesions. 5. Moderate bladder wall thickening that may represent a cystitis or residue of cholecystitis. 6. Normal uterus and ovaries. 7. Mild lumbar lordosis. Otherwise, normal osseous structures. Electronically Signed: Ruy Shabazz MD at 19:01 EDT ,
--- NOTE | 2021-12-02 16:01 | EDS_ITS ---
HPI History of Present Illness Chief Complaint: GI Bleed Informant: patient Onset/Context/Timing Onset: Weeks Narrative Narrative: Patient presents secondary to abdominal pain. She was here in July with complaint of abdominal pain. Work-up was reportedly unremarkable and she was referred to Dr. Gonzalez. She saw Dr. Gonzalez and had an outpatient colonoscopy. Reportedly there were some polyps that were tested and not significant. Patient states she continues to have chronic diarrhea for the last several months with occasional blood. She tried to go Dr. Gonzalez's office today but was put on hold and could not speak to a person. She states she been told in the past if her symptoms to get worse she should come to the emergency room and get a CAT scan. She denies fever or chills. She complains of a burning sensation in her upper abdomen that is constant. [facility] Medical History Arthritis Chronic fatigue COPD (chronic obstructive pulmonary disease) Fibromyalgia Home Medications cholecalciferol (vitamin D3) 25 mcg (1,000 unit) tablet 1,000 unit PO DAILY 12/14/19 [History Last Taken Unknown] albuterol sulfate 90 mcg/actuation aerosol inhaler 2 inh inhalation Q4H PRN PRN Shortness Of Breath 05/12/21 [History Last Taken Unknown] atomoxetine 40 mg capsule 40 mg PO DAILY 12/02/21 [History Last Taken Unknown] duloxetine 20 mg capsule,delayed release 20 mg PO DAILY 12/02/21 [History Last Taken Unknown] omeprazole 20 mg capsule,delayed release 20 mg PO DAILY 4 weeks #28 caps 12/02/21 [Rx Last Taken Unknown] Allergy/AdvReac Type Severity Reaction Status Date / Time No Known Allergies Allergy Verified 12/02/21 15:39 Social History Smoking Status: Current every day smoker tobacco type: cigarettes ROS ROS ED Constitutional Constitutional ED: Denies chills or fever(s) Eyes Eyes: Denies change in vision or discharge from eye(s) ENT ENT ED: Denies discharge from eye(s), rhinorrhea or sore throat Cardiovascular Cardiovascular: Denies chest pain or palpitations Respiratory/Chest Respiratory/Chest: Denies cough or dyspnea Gastrointestinal Gastrointestinal: Reports abdominal pain, diarrhea and other Details: Intermittent bright red blood per rectum x several months ; Denies nausea or vomiting Genitourinary Genitourinary ED: Denies difficulty urinating or dysuria Musculoskeletal Musculoskeletal: Denies back pain or extremity pain Integumentary Denies Abrasions or rash Neurologic Neurologic: Denies headache(s) or weakness Allergic/Immunologic Allergic/Immunologic ED: Denies lip swelling or urticaria EXAM Physical Exam Const Vital Signs: 12/02/21 15:40 12/02/21 17:06 Temperature 98.2 F Temperature Source Temporal Pulse Rate 101 H 70 Respiratory Rate 16 16 Blood Pressure 137/86 H 116/88 H Blood Pressure Mean 103 97 Pulse Ox 98 95 Oxygen Delivery Method Room Air Room Air Positive well nourished and well developed General Appearance ED: well developed HEENT Reports normocephalic and head/scalp atraumatic Eyes PERRL and EOMs intact bilaterally Neck supple Chest Wall inspection of chest normal and palpation of chest normal Resp normal respiratory effort and clear to auscultation bilaterally Cardio regular rate and regular rhythm GI non-tender Auscultation: hypoactive bowel sounds Palpation: soft Extremity normal to inspection Neuro oriented x3 and no sensory deficits noted Sensorium / Orientation: alert Motor Exam: strength 5/5 throughout Psych mental status grossly normal Skin no rashes or lesions noted MDM MDM MDM Narrative Medical decision making narrative: Patient was given a GI cocktail along with IV Protonix. Lab work obtained as well as CT scan of the abdomen and pelvis with contrast. Lab Data Attestation: I reviewed the patient's lab results. Labs: Laboratory Results - last 24 hr 12/02/21 12/02/21 15:55 15:55 WBC 8.0 RBC 4.87 Hgb 15.7 H Hct 45.1 MCV 92.6 MCH 32.2 H MCHC 34.8 RDW Std Deviation 41.3 RDW Coeff of Gaudencio 12.0 Plt Count 218 MPV 11.5 Immature Gran % (Auto) 0.400 Neut % (Auto) 76.9 H Lymph % (Auto) 12.7 L [place] % (Auto) 9.4 Eos % (Auto) 0.4 Baso % (Auto) 0.2 Absolute Neuts (auto) 6.2 Absolute Lymphs (auto) 1.02 Nucleated RBC % 0 Sodium 142 Potassium 3.4 L Chloride 107 Carbon Dioxide 29.0 Anion Gap 6 BUN 17 Creatinine 0.79 Estim Creat Clear Calc 57.86 Est GFR (MDRD) Af Amer 96 Est GFR (MDRD) Non-Af 79 BUN/Creatinine Ratio 21.5 H Glucose 94 Calcium 9.6 Total Bilirubin 0.50 Direct Bilirubin 0.14 AST 16 ALT 21 Alkaline Phosphatase 79 Total Protein 7.7 Albumin 4.2 Globulin 3.5 Lipase 92 Radiography Diagnostic Testing: Clinical Impression(s) from Imaging Studies Abdomen/Pelvis CT 12/02/21 15:59 IMPRESSION: 1. Mild constipation. 2. No appendicitis, diverticulitis, colitis, or intestinal obstruction. 3. No cholelithiasis, cholecystitis, pancreatitis. No pancreatic mass lesions. 4. No pyelonephritis or obstructive uropathy. No renal cystic or solid mass lesions. 5. Moderate bladder wall thickening that may represent a cystitis or residue of cholecystitis. 6. Normal uterus and ovaries. 7. Mild lumbar lordosis. Otherwise, normal osseous structures. Electronically Signed: Ruy Shabazz MD at 19:01 EDT , Treatment and Re-Evaluation Narrative: Lab work reveals normal CBC. Chemistry studies reveal mildly low potassium at 3.4. Renal function is normal. LFTs and lipase normal. CT scan reveals mild constipation. There is moderate bladder wall thickening. Patient has no urinary symptoms. Test results discussed with the patient. She has had a colonoscopy but has not undergone an EGD. I did recommend she follow-up with Dr. Gonzalez for this. When patient was seen here in July she was initially referred to Dr. Ojeda. She states that he did not accept her insurance and that is why she went to Dr. Gonzalez. In light of this I will also refer her to Dr. De Guzman to see if her insurance is accepted there. Patient has a strong family history of IBS and my concern is that she will need chronic management for this it is not typically done by the surgeons. Patient will be given a prescription for Prilosec. Discharge Plan Triage Chief Complaint: GI Bleed ED Provider: Tamara Gillespie Dx/Rx/DC Orders Clinical Impression: Abdominal pain, Diarrhea Instructions: ED Abdominal Pain Unkn Cause Fem, ED Diarrhea, Unknown Cause Prescriptions: New omeprazole 20 mg capsule,delayed release(DR/EC) 20 mg PO DAILY 28 Days Qty: 28 0RF No Action cholecalciferol (vitamin D3) 1,000 UNIT tablet 1,000 unit PO DAILY albuterol sulfate 90 mcg/actuation HFA aerosol inhaler 2 inh INHALATION Q4H PRN PRN (Reason: Shortness Of Breath) Label Comments: inhale 2 puffs every 4 hours if needed atomoxetine 40 mg capsule 40 mg PO DAILY Label Comments: TAKE 1 CAPSULE BY MOUTH ONCE DAILY duloxetine 20 mg capsule,delayed release(DR/EC) 20 mg PO DAILY Label Comments: TAKE 1 CAPSULE BY MOUTH ONCE DAILY Primary Care Provider: Macrina Melgoza Referrals: Sheree Gonzalez MD [Med Staff - Active Staff] - 1-2 Weeks Kendall De Guzman MD [NON-STAFF] - As soon as possible Care Physician,No Primary [NON-STAFF] - Disposition Disposition: Home, Self Care
[2021-12-02] MEDS: Mag Hydrox/Al Hydrox/Simeth 30 ML UDC PO (16:16)
[2021-12-02 16:30] LABS: Absolute Lymphocyte Count 1.02 X10^3/uL (0.83-4.51); Absolute Neutrophil Count 6.2 X10^3/uL (2.0-7.7); Basophil# 0.02 X10^3/uL; Basophil% 0.2 % (0-1); Eosinophil# 0.03 X10^3/uL; Eosinophils% 0.4 % (0-5); Hematocrit 45.1 % (37-47); Hemoglobin 15.7 g/dL (12.0-15.0); Lymphocyte # 1.02 X10^3/ul (0.83-4.51); Lymphocyte % 12.7 % (19-41); Mean Corp Hgb Conc 34.8 g/dL (32-36); Mean Corpuscular Hgb 32.2 pg (27.0-32.0); Mean Corpuscular Volume 92.6 fL (81-99); Mean Platelet Vol. 11.5 fl (6.2-12.0); Monocyte# 0.75 X10^3/uL; Monocyte% 9.4 % (0-10); NRBC Flagged by Analyzer 0 % (0-5); Neutrophil # 6.17 X10^3/uL (2.7-7.7); Neutrophil % 76.9 % (47-70); Platelet Count 218 K/mm3 (150-450); RBC Distribution Width SD 41.3 fl (35.1-43.9); Red Blood Count 4.87 M/mm3 (4.2-5.4)
[2021-12-02] MEDS: 0.9% Normal Saline 1,000 ML 150 ML IV (16:35)
[2021-12-02 16:36] LABS: AST(SGOT) 16 U/L (15-37); Alanine Aminotransfer ALT/SGPT 21 U/L (13-56); Albumin, Serum 4.2 g/dL (3.2-5.0); Alkaline Phosphatase 79 U/L (45-117); Anion Gap 6 (5-15); BUN 17 mg/dL (7-18); BUN/Creat Ratio 21.5 RATIO (10-20); Bilirubin, Direct 0.14 mg/dL (0.00-0.30); Calcium,Total 9.6 mg/dL (8.5-10.1); Chloride 107 mmol/L (98-107); Creatinine, Serum 0.79 mg/dL (0.55-1.02); EST Glomerular Filtration Rate 79 mL/min (>60); Est Glom Filt Rate - Afr Amer 96 mL/min (>60); Estimated Creatinine Clearance 57.86 ml/min; Globulin 3.5 g/dL (2.2-4.2); Glucose 94 mg/dL (74-106); Lipase 92 U/L (73-393); Potassium 3.4 mmol/L (3.5-5.1); Protein, Total 7.7 g/dL (6.4-8.2); Sodium Level 142 mmol/L (136-145)
[2021-12-02 17:06] VITALS: BP 116/88; PULSE 70; RESP 16; O2SAT 95
== END 2021-12-02 19:36 | disposition home or self-care (01) ==
PROVIDERS: Emergency Provider Emergency Medicine; PCP Family Medicine; Visit Provider Emergency Medicine
DX: R10.9 Unspecified abdominal pain (principal); R19.7 Diarrhea, unspecified; F17.210 Nicotine dependence, cigarettes, uncomplicated; M19.90 Unspecified osteoarthritis, unspecified site; Z79.899 Other long term (current) drug therapy
CPT/HCPCS: 74177; 80048; 80076; 83690; 85025; 96365; 99285; J7030; Q9967; A4216

== ENCOUNTER → 2025-04-14 | Outpatient (CLI) | payer MEDICAID, SELFPAY ==
--- NOTE | 2025-04-14 | CYSPIN_PTH ---
PATIENT: HEVER FRIEDMAN LOC: [facility]#:[id number] AGE/SX: 64/F ROOM: RE04/14/[address]: Dr. Smita Damon MD : 1960 BED: DIS: 04/14/2025 SPEC #: [id number] RECD: 04/14/25 14:38 STATUS: LUIS REChuy #: [id number] VASYL: 04/14/25 00:[address]: Smita Damon DEPT: CYTOLOGY RECD BY: Shane Noguera ENTERED: 04/15/25 09:58 SP TYPE: CYSPIN FL OTHR DR: Krystyna Kruse, RESIDENTIAL APPRAISER-C Tissues: A - Urine Procedures: Pap Stain (control) Special Stain Group II Cytospin Fluid HEADER OPERATION: Not noted PRE-OP DIAGNOSIS: Hematuria, history of kidney stones TISSUE SUBMITTED: A. Urine DIAGNOSIS CYTOLOGY A. Urine, nos (cytospin): - No malignant cells identified. CYTOLOGY STUDY Slides are reviewed. CYTOLOGY GROSS A. Received is 60 ml of light yellow, cloudy fluid labeled with the patient's name and and designated per the requisition as urine. Submitted for cytology preparation. 04/15/2025 CPT: 07804
[2025-04-14 14:33] LABS: Anion Gap 12 (7-18); BUN 11 mg/dL (4-19); BUN/Creat Ratio 15.7 RATIO (10-20); Calcium,Total 10.1 mg/dL (7.6-11.0); Carbon Dioxide 26.6 mmol/L (20.0-29.0); Chloride 104 mmol/L (96-106); Glucose 96 mg/dL (70-99); Potassium 3.7 mmol/L (3.5-5.1)
[2025-04-14 17:09] LABS: Cytology, Body Fluid / CSF SEE PATHOLOGY REPORT
== END | disposition home or self-care (01) ==
PROVIDERS: PCP Nurse Practitioner Family; Referring Provider Urology; Visit Provider Urology
DX: N32.89 Other specified disorders of bladder (principal); R31.9 Hematuria, unspecified
CPT/HCPCS: 36415; 80048; 88108; 88313